=== PATIENT | female | born 1965 | race Caucasian/White ===

== ENCOUNTER 2020-08-07 05:01 | Day surgery (SDC) | payer OTHER ==
[2020-08-05 15:15] VITALS: BMI 23.3
[2020-08-07 08:59] VITALS: TEMP 97.9
[2020-08-07 09:26] VITALS: BP 146/85; PULSE 62
== END 2020-08-07 09:59 | disposition home or self-care (01) ==
LOC: JASU-ENDO 05:01
PROVIDERS: ATTEND Internal Medicine Gastroenterology
PROC: 0DB78ZX Excision of Stomach, Pylorus, Via Natural or Artificial Opening Endoscopic, Diagnostic (ICD-10-PCS; 2020-08-07)
PROC: 0DJD8ZZ Inspection of Lower Intestinal Tract, Via Natural or Artificial Opening Endoscopic (ICD-10-PCS; 2020-08-07)
PROC: 0DB98ZX Excision of Duodenum, Via Natural or Artificial Opening Endoscopic, Diagnostic (ICD-10-PCS; principal; 2020-08-07 10:00)
DX: K92.1 Melena (principal); K29.70 Gastritis, unspecified, without bleeding; K29.80 Duodenitis without bleeding; K57.30 Diverticulosis of large intestine without perforation or abscess without bleeding; K21.00 Gastro-esophageal reflux disease with esophagitis, without bleeding; B96.81 Helicobacter pylori [H. pylori] as the cause of diseases classified elsewhere
CPT/HCPCS: 43239; G0121; 88305-TC; 88342-TC